=== PATIENT | male | born 1955 | race Caucasian/White ===

== ENCOUNTER 2019-12-06 11:39 | Inpatient (IN) | payer OTHER ==
[~2019-12-06] VITALS: Ht 188 cm; Wt 133.0 kg
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
[2019-12-06 11:40] VITALS: BP 152/95
[2019-12-06 12:08] LABS: BASOPHILS 0.7 % (0.0-2.0); EOSINOPHILS 0.4 % (0.0-3.0); HEMATOCRIT 45.3 % (42.0-52.0); HEMOGLOBIN 15.6 gm/dL (14.0-18.0); LYMPHOCYTES 9.5 % (24.0-44.0); MCH 32.4 pg (26.0-34.0); MCHC 34.4 g/dL (28.0-37.0); MCV 94.3 fL (80.0-100.0); MONOCYTES 6.7 % (1.0-8.0); PLATELET COUNT 226 thou/uL (150-400); POLYS 82.7 % (36.0-66.0); RBC 4.81 mil/uL (4.50-6.00); RDW 13.3 % (10.5-14.5); WBC 10.9 thou/uL (4.0-11.0)
[2019-12-06 12:11] LABS: ANION GAP 9 mmol/L (7-16); BUN 12 mg/dL (7-18); CALCIUM 8.9 mg/dL (8.5-10.1); CHLORIDE 103 mmol/L (98-107); CO2 26 mmol/L (21-32); CREATININE 1.3 mg/dL (0.7-1.3); GLUCOSE 304 mg/dL (74-106); POTASSIUM 4.1 mmol/L (3.5-5.1); SODIUM 138 mmol/L (136-145)
[2019-12-06 12:16] LABS: PROTIME 10.7 Seconds (9.3-11.4)
[2019-12-06 12:21] LABS: ALBUMIN 3.3 g/dL (3.4-5.0); SGOT 20 U/L (15-37); SGPT 24 U/L (30-65); TOTAL BILIRUBIN 1.1 mg/dL (<0.1-1.0); TOTAL PROTEIN 7.5 g/dL (6.4-8.2); TROPONIN-I <0.06 ng/mL (<0.06)
[2019-12-06 13:37] LABS: URINE BILIRUBIN NEGATIVE (Negative); URINE BLOOD TRACE (Negative); URINE CLARITY CLEAR; URINE COLOR YELLOW; URINE GLUCOSE-RANDOM* 2+ (Negative); URINE KETONES 1+ (Negative); URINE LEUKOCYTES-REFLEX NEGATIVE (Negative); URINE NITRITE-REFLEX NEGATIVE (Negative); URINE PROTEIN (DIPSTICK) NEGATIVE (Negative); URINE SPECIFIC GRAVITY 1.025 (1.005-1.035); URINE UROBILINOGEN 0.2 E.U./dl (0.2-1.0)
[2019-12-06 15:23] LABS: TSH 2.229 uIU/mL (0.358-3.740)
--- NOTE | 2019-12-06 15:25 | EKG ---
[facility] [address] [address] ELECTROCARDIOGRAM REPORT Name: MARKO FONTENOT Room #: 170-4 ADM IN M.R.#: [id number] Admission: 12/06/19 Attend Phys: Eduardo Alvarez MD Discharge: Date of : 51 Report #: [id number] THIS REPORT FOR: cc: MILKA - Laquita family physician/PCP MILKA - No family physician/PCP Schuyler Shen MD ~ THIS REPORT FOR: //name// [facility] ED Test Date: 2019-12-06 Test Time: 11:55:23 Pat Name: MARKO FONTENOT Department: Room: [facility] Gender: M Camp Boss: LAINE : 1955 Requested By: Mart Hickey Order Number: [id number] MD: Schuyler Shen Measurements Intervals [place] Rate: 106 P: MI: QRS: 24 QRSD: 106 T: 24 QT: 347 QTc: 461 Interpretive Statements Atrial fibrillation Ventricular premature complex No previous ECG available for comparison Electronically Signed On 12-06-2019 15:25:01 BOOKMAKER MAP by Schuyler Shen [email or web address] <ELECTRONICALLY SIGNED> By: Schuyler Shen MD 12/06/19 1525 1155 1155 Schuyler Shen MD /DEMETRI
[2019-12-06 17:03] VITALS: BP 183/113
[2019-12-06 18:23] VITALS: BP 152/95
[2019-12-06 18:40] VITALS: BP 152/95
[2019-12-06 21:18] VITALS: BP 163/73
[2019-12-07 00:38] VITALS: BP 158/101
[2019-12-07 03:49] VITALS: BP 164/97
[2019-12-07 06:53] LABS: ABSOLUTE NEUTROPHILS 7.9 thou/uL (1.4-8.2); EOSINOPHILS 2.9 % (0.0-3.0); HEMATOCRIT 39.5 % (42.0-52.0); HEMOGLOBIN 13.7 gm/dL (14.0-18.0); LYMPHOCYTES 19.8 % (24.0-44.0); MCH 33.1 pg (26.0-34.0); MCHC 34.7 g/dL (28.0-37.0); MCV 95.3 fL (80.0-100.0); MONOCYTES 7.8 % (1.0-8.0); PLATELET COUNT 225 thou/uL (150-400); POLYS 68.5 % (36.0-66.0); RBC 4.14 mil/uL (4.50-6.00); RDW 13.8 % (10.5-14.5); WBC 11.5 thou/uL (4.0-11.0)
[2019-12-07 07:12] LABS: ANION GAP 12 mmol/L (7-16); BUN 11 mg/dL (7-18); CALCIUM 9.1 mg/dL (8.5-10.1); CHLORIDE 102 mmol/L (98-107); CHOLESTEROL 215 mg/dL (<200); CO2 28 mmol/L (21-32); CREATININE 1.1 mg/dL (0.7-1.3); GLUCOSE 169 mg/dL (74-106); HDL CHOLESTEROL 44 mg/dL (>40); LDL CHOLESTEROL 112 mg/dL (<100); MAGNESIUM 1.9 mg/dL (1.8-2.4); SODIUM 142 mmol/L (136-145); TC:HDL 4.9 Ratio (Not establshd); TRIGLYCERIDE 299 mg/dL (<150); VLDL 60 mg/dL (<40)
[2019-12-07 07:29] LABS: POTASSIUM 3.1 mmol/L (3.5-5.1)
[2019-12-07 07:35] VITALS: BP 158/107
--- NOTE | 2019-12-07 08:46 | NUR ---
ASSUMED CARE AT 1900, ADMISSION AND ASSESSMENT COMPLETED. HEPARIN DRIP WITH BOLUS STARTED; APTT SCHEDULED FOR 0300. NIH SCORE OF 7; SEVERE LEFT SIDE VISION CHANGES AND LEFT SIDE WEAKNESS; GROSS MOTOR MOVEMENT INTACT BUT PT REPORTS LEFT SIDE FEELS NUMB--FREQ HITTING ELBOW AND FOOT ON SIDE OF BED, CAUSING RED SPOTS AND SCRAPES. ALERT AND ORIENTED x4 BUT WITH A SLIGHT DELAY WITH SOME QUESTIONS/FOLLOWING COMMANDS. HAS BEEN IN SR IN THE 70'S OVERNIGHT. HAD SOME STRESS INCONT. LARGE LOOSE STOOL EARLY IN SHIFT. NO OTHER CONCERNS, SHIFT REPORT GIVEN AT 0700.
[2019-12-07 11:33] VITALS: BP 148/88
[2019-12-07 12:32] LABS: CHOLESTEROL 218 mg/dL (<200); HDL CHOLESTEROL 41 mg/dL (>40); LDL CHOLESTEROL 114 mg/dL (<100); TC:HDL 5.3 Ratio (Not establshd); TRIGLYCERIDE 319 mg/dL (<150); VLDL 64 mg/dL (<40)
--- NOTE | 2019-12-07 13:43 | EKG ---
[facility] [place] [address] ELECTROCARDIOGRAM REPORT Name: MARKO FONTENOT Room #: 355- ADM IN M.R.#: [id number] Admission: 12/06/19 Attend Phys: Eduardo Alvarez MD Discharge: Date of : 51 Report #: [id number] THIS REPORT FOR: cc: MILKA - No family physician/PCP MILKA - No family physician/PCP Schuyler Shen MD ~ THIS REPORT FOR: //name// [facility] Test Date: 2019-12-07 Test Time: 08:43:36 Pat Name: MARKO FONTENOT Department: Room: 355 Gender: M Outside Sales Consultant: Hamida IVY : 1955 Requested By: Gopi Hernández Order Number: [id number] MD: Schuyler Shen Measurements Intervals [place] Rate: 119 P: AR: QRS: 25 QRSD: 108 T: 20 QT: 364 QTc: 513 Interpretive Statements Atrial fibrillation Compared to ECG 12/06/2019 11:55:23 Electronically Signed On 12-07-2019 13:42:34 GLASS PRODUCTION MACHINE OPERATOR by Schuyler Shen [email or web address] <ELECTRONICALLY SIGNED> By: Schuyler Shen MD 12/07/19 1342 0843 0843 Schuyler Shen MD /EPI
[2019-12-07 15:17] VITALS: BP 137/80
--- NOTE | 2019-12-07 19:10 | NUR ---
ASSUMED PATIENT CARE AT 0700. A/O X4. HIN X6. LEFT SIDE WEAKNESS. ON HEPRIAN GTT. MAX ASSISTED. SOLWLT TOWARDS POC GOALS.
[2019-12-07 19:13] VITALS: BP 127/80
[2019-12-08] MEDS ORDERED: ASPIR-LOW81 MG PO (00:04)
[2019-12-08] MEDS ORDERED: METFORMIN HCL500 M3 PO (00:05)
[2019-12-08] MEDS ORDERED: COUMADIN 3 MG TA3 MG PO (00:06)
[2019-12-08 04:00] VITALS: BP 134/96
[2019-12-08 07:43] VITALS: BP 148/100
--- NOTE | 2019-12-08 08:34 | NUR ---
PT MAKING POOR PROGRESS TOWARDS GOALS. NIH=7 UPON EACH ASSESSMENT. SEE CHARTING. PT STATED "I KNOW I DID THIS TO MYSELF, BY NOT FINDING A WAY TO GET MY MEDICATIONS." PT REPORTING THAT HE TAKES BABY ASA, METFORMIN (UNSURE OF EXACT DOSE), WARFARIN (UNSURE OF EXACT DOSE), "SOMETHING FOR BLOOD PRESSURE" AND "SOMETHING FOR DEPRESSION." HE FURTHER STATED THAT HE BELIEVES HE HAS NOT TAKEN ANY OF THESE MEDS SINCE LAST JULY EXCEPT FOR THE BABY ASPIRIN WHICH HE HAS TAKEN EVERY DAY. REPORTEDLY HAS BEEN GOING TO A FREE CLINICK LOCATED ON "[address]" AND HAS BEEN ABLE TO GET HIS SCRIPTS FILLED AT "[facility]."
--- NOTE | 2019-12-08 08:52 | EKG ---
[facility] [place] [address] ELECTROCARDIOGRAM REPORT Name: MARKO FONTENOT José Room #: 355- ADM IN M.R.#: [id number] Admission: 12/06/19 Attend Phys: Eduardo Alvarez MD Discharge: Date of : 53 Report #: [id number] THIS REPORT FOR: cc: MILKA - Laquita family physician/PCP MILKA - Laquita family physician/PCP Schuyler Shen MD ~ THIS REPORT FOR: //name// [facility] Test Date: 2019-12-07 Test Time: 14:28:06 Pat Name: MARKO FONTENOT Department: Room: 355 Gender: M Machine Grinder: Hamida IVY : 1955 Requested By: Schuyler Shen Order Number: [id number] MD: Schuyler Shen Measurements Intervals [place] Rate: 83 P: 28 IN: 158 QRS: 24 QRSD: 101 T: 27 QT: 391 QTc: 460 Interpretive Statements Sinus rhythm Probable left atrial enlargement Compared to ECG 12/07/2019 08:43:36 Atrial fibrillation no longer present Electronically Signed On 12-08-2019 8:51:28 RESIN MAKER by Schuyler Shen [email or web address] <ELECTRONICALLY SIGNED> By: Schuyler Shen MD 12/08/19 0851 1428 1428 Schuyler Shen MD /EPI
--- NOTE | 2019-12-08 08:55 | EKG ---
[facility] [place] [address] ELECTROCARDIOGRAM REPORT Name: MARKO FONTENOT José Room #: 355- ADM IN M.R.#: [id number] Admission: 12/06/19 Attend Phys: Eduardo Alvarez MD Discharge: Date of : 53 Report #: [id number] THIS REPORT FOR: cc: MILKA - Laquita family physician/PCP MILKA - Laquita family physician/PCP Schuyler Shen MD ~ THIS REPORT FOR: //name// [facility] Test Date: 2019-12-08 Test Time: 08:05:35 Pat Name: MARKO FONTENOT Department: Room: 355 Gender: M Electrical Mechanic: SEGUNDO : 1955 Requested By: Schuyler Shen Order Number: [id number] MD: Schuyler Shen Measurements Intervals [place] Rate: 71 P: 40 [place]: 152 QRS: 19 QRSD: 113 T: 25 QT: 415 QTc: 451 Interpretive Statements Sinus rhythm Borderline intraventricular conduction delay Compared to ECG 12/07/2019 08:43:36 Atrial fibrillation no longer present Electronically Signed On 12-08-2019 8:54:41 CARRY IN WORKER by Schuyler Shen [email or web address] <ELECTRONICALLY SIGNED> By: Schuyler Shen MD 12/08/1956 4 4 Schuyler Shen MD /EPI
--- NOTE | 2019-12-08 14:07 | HC ---
[facility] [place] [address] CONSULTATION Name: MARKO FONTENOT Room #: 355-[facility] IN M.R.#: [id number] Admission: 12/06/19 Attend Phys: Eduardo Alvarez MD Discharge: Date of : 51 Report #: [id number] THIS REPORT FOR: cc: MILKA Coelho family physician/PCP MILKA - Laquita family physician/PCP Fernanda Rodríguez MD ~ CC: Eduardo Alvarez [facility] physician/PCP Harley Mendez DATE OF SERVICE: 12/07/2019 ENDOCRINE CONSULTATION NOTE CONSULTING PHYSICIAN: Dr. Alvarez. REASON FOR CONSULTATION: Severe hyperglycemia, uncontrolled type 2 diabetes mellitus. HISTORY OF PRESENT ILLNESS: This is a 64-year-old male patient whose medical background is significant for type 2 diabetes mellitus, hypertension, hyperlipidemia, who presented yesterday with complaints of left-sided weakness starting about 48 hours prior to his presentation. The patient reported overall weakness, dizziness, left-sided weakness, gait instability and was admitted on the notion of possible stroke versus TIA. The patient notes that he was diagnosed with type 2 diabetes mellitus in 07/2019 and that he was prescribed a combination of metformin and another oral agent that he cannot recall. The patient has been following at a free clinic and is not covered by health insurance. Unfortunately, he cut his followup short and stopped all medications for diabetes and otherwise a few months ago. He has not monitored his blood glucose at home either. The patient has not particularly had issues with polyuria, polydipsia or significant body weight changes. He is not aware of any documented diabetic complications. REVIEW OF SYSTEMS: CONSTITUTIONAL: Fatigue, tiredness. No fever, no chills, no body weight changes. HEENT: Negative for sinus pain, congestion, ear drainage. PULMONARY: Negative for shortness of breath, cough or hemoptysis. CARDIAC: Negative for chest pain, palpitations, noted for lightheadedness and dizziness. NEUROLOGY: Right-sided weakness, gait instability, left-sided numbness. No seizure activity, no loss of consciousness. GASTROINTESTINAL: Negative for abdominal pain, nausea, vomiting or changes in bowel movement frequency. [facility] [address] [place] [address] CONSULTATION Name: MARKO FONTENOT Jsoé Room #: 355-P [facility] IN ..#: [id number] Admission: 12/06/19 Attend Phys: Eduardo Alvarez MD Discharge: Date of : 53 Report #: [id number] SKIN: Negative for rash, ulceration or other major abnormalities. PSYCHIATRIC: Negative for delusions, hallucinations. NEUROLOGICAL: Negative for dysuria, hematuria, or frequency. Otherwise, review of system is noncontributory other than those mentioned in HPI. PAST MEDICAL HISTORY: Hypertension, hyperlipidemia, type 2 diabetes mellitus, atrial fibrillation, asthma, obesity. OUTPATIENT MEDICATIONS: None. DRUG ALLERGIES: No known drug allergies. FAMILY HISTORY: Noncontributory. SOCIAL HISTORY: The patient is single, lives alone. Denies use of tobacco, alcohol or illicit drugs. PHYSICAL EXAMINATION: GENERAL: male patient who is not in apparent pain or distress. VITAL SIGNS: Blood pressure is 148/88 mmHg, heart rate is 78 beats per minute, respirations 20 per minute, temperature 36.6 degrees. CONSTITUTIONAL: The patient is sitting upright in his bed, appears fairly comfortable, not in apparent distress. HEENT: Anicteric sclerae. Intact extraocular motions. NECK: Supple, without JVD, carotid bruits or lymphadenopathy. I do not appreciate thyromegaly. CHEST: Noted for moderate entry bilaterally with scattered rales and rhonchi, few wheezes. HEART: Regular rate and rhythm without murmurs or gallops. ABDOMEN: Soft and lax. No guarding. Active bowel sounds. EXTREMITIES: Lower extremity exam negative for ankle edema, skin breaks or ulcerations. NEUROLOGIC: Awake, alert and oriented to time, place and person. The exam is noted for 4/5 power over the left upper extremity and lower extremity, altered sensation over the left upper extremity and lower extremity. PSYCH: Interactive, answers my questions appropriately. Normal thought process, but he has a flat mood and affect. LABORATORY RESULTS: During his hospital stay so far blood glucose values have run between 236 and 322 mg/dL. Sodium 142, potassium 3.1, chloride 102, CO2 of 28, anion gap 12, BUN 11, creatinine 1.1. AST 20, total bilirubin 1.1, calcium 9.1, magnesium 1.9, alkaline phosphatase 144, ALT 24, albumin 3.3, EGFR 67. Total cholesterol 218, triglycerides 319, HDL 41, LDL 114. INR 1.0. White blood count 11.5, hemoglobin 13.7, hematocrit 39.5, platelets 225. Hemoglobin A1c is 10%. [address] [address] CONSULTATION Name: MARKO FONTENOT José Room #: 355-P [facility] IN M.R.#: [id number] Admission: 02/14/20 Attend Phys: Eduardo Alvarez MD Discharge: Date of : 51 Report #: [id number] An MRI of the head was performed and noted an acute infarction in the right thalamus, medial aspect of the right temporal lobe and in the anterior most aspects of the right occipital lobe, mild to moderate left frontal and left maxillary sinusitis. Carotid ultrasound noted no significant plaque or stenosis within the internal carotid arteries. Lower extremity arterial ultrasound showed no evidence of occlusion or hemodynamically significant stenosis within the bilateral lower extremity arterial system. ASSESSMENT AND PLAN: 1. Type 2 diabetes mellitus. As noted above, the patient had a recent diagnosis of type 2 diabetes mellitus, and has unfortunately discontinued all active medications due to health insurance being lacking. I had a lengthy discussion with the patient about the importance of achieving and maintaining adequate glycemic control so as to prevent microvascular and macrovascular diabetic complications and explained that the current events might be at least partially contributed to by uncontrolled hyperglycemia. I counseled the patient about the fact that we should be able to reasonably intervene medically with generic medicines that can be attainable without health insurance and he expresses understanding of this notion. The patient continues to have issues with severe hyperglycemia during this hospital stay and given this outlook I will start the patient on Lantus insulin at a dose of 18 units daily as well as keep coverage with Humalog supplemental scale at low intensity. Also, I will add linagliptin 5 mg to his regimen. Blood glucose monitoring will commence a.c. and at bedtime. Upon approaching discharge, the patient will be best covered by generic medicines that can be obtained at a low cost out of pocket including metformin and sulfonylureas. However, I would like to put off the use of metformin for now until I am assure that no further workup or intervention that could be contrast based is needed prior to discharge. 2. Hypertension. The patient's level of blood pressure control is reasonable considering the acute neurological event. He is currently on metoprolol. This is to continue. 3. Hyperlipidemia. The patient's level of lipid control is not satisfactory given the acute CVA and cardiovascular outlook. I will start him on atorvastatin 20 mg daily. 4. Atrial fibrillation. The patient is being followed by Dr. Shen for this issue. 5. Cerebrovascular accident. As noted above, the patient has radiologic evidence of an acute CVA and is under the care of the Neurology team for this issue. [facility] [address] [place] [address] CONSULTATION Name: MARKO FONTENOT Room #: 355-P [facility] IN [facility]#: [id number] Admission: 12/06/19 Attend Phys: Eduardo Alvarez MD Discharge: Date of : 53 Report #: [id number] I certainly appreciate this consultation by Dr. Alvarez. <ELECTRONICALLY SIGNED> By: Fernanda Rodríguez MD 12/08/19 1407 1339 2224 Fernanda Rodríguez MD /nt
[2019-12-08 15:28] VITALS: BP 150/85
[2019-12-08 20:24] VITALS: BP 156/95
[2019-12-08] MEDS ORDERED: BP MED (20:49)
[2019-12-08] MEDS ORDERED: [UNRECOGNIZED DRUG - OTHER] (20:50)
--- NOTE | 2019-12-08 21:04 | NUR ---
DISCUSSED NEED TO STAY ON MEDS ORDERED..
[2019-12-09 04:05] VITALS: BP 151/104
--- NOTE | 2019-12-09 06:24 | NUR ---
Pt. slept fair during the night. No change in neuro status. Cont. on heparin gtt. ,no signs of bleeding. Bed alarm on for safety. Assisted to reposition prn. Will continue to monitor.
--- NOTE | 2019-12-09 06:31 | NUR ---
Pt. had episode of being in afib with [id number] rate for a couple of hours ( [id number] ). Asymptomatic and now back to NSR. Nocturnal desat study done last night.
[2019-12-09 07:36] VITALS: BP 159/104
--- NOTE | 2019-12-09 11:16 | 2DMMODE ---
[facility] [place] [address] 2 D/M-MODE ECHOCARDIOGRAM Name: MARKO FONTENOT José Room #: 355-P ADM IN M.R.#: [id number] Admission: 12/06/19 Attend Phys: Eduardo Alvarez MD Discharge: Date of : 51 Report #: [id number] THIS REPORT FOR: cc: FAM - No family physician/PCP FAM - No family physician/PCP Gopi Hernández MD [facility] ~ APPROVED REPORT Study performed: 12/09/2019 10:16:08 EXAM: Comprehensive 2D, Doppler, and color-flow Echocardiogram Patient Location: Echo lab Room #: [facility] Status: routine BSA: 2.56 HR: 78 bpm BP: 159/104 mmHg Rhythm: NSR Other Information Study Quality: Good Technically limited study due to morbid obesity and COPD. Indications CVA. Hx: Afib, COPD, HTN, HLP. Echo Enhancing Agent Indication: Rule out Shunt Agent(s) / Amount(s) Used: Agitated Saline 7 cc 2D Dimensions RVDd: 42.83 mm IVSd: 14.11 (7-11mm) LVOT Diam: 22.48 (18-24mm) LVDd: 44.72 mm PWd: 14.06 (7-11mm) Ascending Ao: 36.69 (22-36mm) LVDs: 34.41 (25-40mm) Aortic Root: 35.51 mm Volumes Left Atrial Volume (Systole) Single Plane 4CH: 46.79 mL Single Plane 2CH: 34.51 mL LA ESV Index: 17.00 mL/m2 [facility] [address] [place] [address] 2 D/M-MODE ECHOCARDIOGRAM Name: PO,MARKO Kumar Room #: 355-P [facility] IN .R.#: [id number] Admission: 12/06/19 Attend Phys: Michael Casillas Discharge: Date of : 51 Report #: [id number] Aortic Valve AoV Peak Ahsan.: 1.32 m/s AO Peak Gr.: 6.95 mmHg LVOT Max P.83 mmHg LVOT Max V: 0.84 m/s JOSELUIS Vmax: 2.53 cm2 Mitral Valve E/A Ratio: 0.7 MV Decel. Time: 251.75 ms MV E Max Ahsan.: 0.49 m/s MV A Ahsan.: 0.72 m/s MV PHT: 73.01 ms IVRT: 89.97 ms Pulmonary Valve PV Peak Ahsan.: 1.19 m/s PV Peak Gr.: 5.65 mmHg Pulmonary Vein P Vein S: 0.44 m/s P Vein A: 0.27 m/s P Vein D: 0.30 m/s P Vein A Dur.: 121.1 msec P Vein S/D Ratio: 1.47 Tricuspid Valve RAP Estimate: 5.00 mmHg Left Ventricle The left ventricle is normal size. There is normal LV segmental wall motion. Mild concentric left ventricular hypertrophy. The overall left ventricular systolic function appears normal. LVEF is 55-60%. Mild diastolic dysfunction is present (impaired relaxation pattern). Right Ventricle The right ventricle is normal size. The right ventricular systolic function is normal. Atria The left atrium size is normal. No shunting noted by contrast bubble injection. The right atrium size is normal. Aortic Valve The aortic valve is normal in structure; mildly calcified. No aortic regurgitation is present. There is no aortic valvular stenosis. [facility] [address] [employer] [place] [address] 2 D/M-MODE ECHOCARDIOGRAM Name: MARKO FONTENOT Room #: 355-P ADM IN .R.#: [id number] Admission: 12/06/19 Attend Phys: Michael Casillas Discharge: Date of : 51 Report #: [id number] Mitral Valve The mitral valve is normal in structure. There is no mitral valve regurgitation noted. No evidence of mitral valve stenosis. Tricuspid Valve The tricuspid valve is normal in structure. There is no tricuspid valve regurgitation noted. Unable to assess PA pressure. Pulmonic Valve Pulmonic valve is not well visualized. Trace pulmonic regurgitation. Great Vessels The aortic root is normal in size. The ascending aorta is normal in size. IVC is normal in size and collapses >50% with inspiration. Pericardium There is no pericardial effusion. <Conclusion> The left ventricle is normal size. LVEF is 55-60%. Mild diastolic dysfunction is present (impaired relaxation pattern). The right ventricle is normal size. The left atrium size is normal. No shunting noted by contrast bubble injection. The aortic valve is normal in structure; mildly calcified. There is no tricuspid valve regurgitation noted. Unable to assess PA pressure. The aortic root is normal in size. There is no pericardial effusion. <ELECTRONICALLY SIGNED> By: Gopi Hernández MD, FACC 12/09/19 1115 1115 1115 Gopi Hernández MD, FACC /INF
[2019-12-09 16:10] VITALS: BP 130/74
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
--- NOTE | 2019-12-09 19:47 | NUR ---
PLEASANT WITH CARES. HE DENIES PAIN. RESPIRATIONS NON LABORED. WILL CONT WITH PLAN OF CARE.
[2019-12-09 20:04] VITALS: BP 167/93
--- NOTE | 2019-12-10 03:05 | NUR ---
Pt. slept fair during the night. No change in neuro assessment.In and out of SR and a fib with controlled rate. Assisted to reposition prn otherwise able to turn self. No bleeding noted. Making progress towards care plan goals.
[2019-12-10 04:35] VITALS: BP 178/93
[2019-12-10 05:37] LABS: HEMATOCRIT 42.9 % (42.0-52.0); HEMOGLOBIN 14.5 gm/dL (14.0-18.0); MCH 32.6 pg (26.0-34.0); MCHC 33.7 g/dL (28.0-37.0); MCV 96.7 fL (80.0-100.0); RBC 4.44 mil/uL (4.50-6.00); RDW 13.4 % (10.5-14.5); WBC 7.4 thou/uL (4.0-11.0)
[2019-12-10 06:25] LABS: CALCIUM 8.8 mg/dL (8.5-10.1); CREATININE 0.9 mg/dL (0.7-1.3); POTASSIUM 3.7 mmol/L (3.5-5.1)
[2019-12-10 07:59] VITALS: BP 156/88
[2019-12-10 16:15] VITALS: BP 147/89
--- NOTE | 2019-12-10 16:22 | NUR ---
Assumed care approx. 0700 this AM. Pt ALOx4 but forgetful. NIH score has been 5. No new stroke-like symptoms. Pt noted to flip between afib and SR on the monitor. Pt up x2 assist from the chair back to bed with a gait belt and walker. Pts left arm makes uncontrolled movements. Pt very unsteady on feet and requires much guidance when trying to ambulate. Pt steadily making progress toward plan of care goals compared to prior state when admitted.
--- NOTE | 2019-12-10 16:26 | NUR ---
SW reviewed chart and spoke with nursing and attending physician. Pt is progressing towards goals for discharge. SW provided [facility] with pt's photo ID. SW met with pt at bedside to discuss discharge plan. 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 Pt agreeable with referrals to SNFs close to [facility] due to location: -Left voice message for Vandana at [facility]. -Spoke with Oly in admissions at [facility], who states the base rate for skilled would be $500/day plus cost of medications. -Spoke with Serenity in admissions at [facility], who state cost would be $403/day plus therapy and meds. -Spoke with Prema at [facility] who states that cost would be $7800 for 28 days plus therapy and meds. Pt would need to pay up front. -Spoke with Maris at [facility] who states that cost would be $198.50/day plus therapy, which is billed at $1.30/minute. Pt would be able to choose how much therapy he wants and would be able to pay on a weekly basis. Referrals to be faxed to facilities for review. SW is following to assist as needed with discharge planning.
[2019-12-10 19:30] VITALS: BP 169/101
[2019-12-11 00:31] VITALS: BP 153/89
[2019-12-11 04:03] VITALS: BP 160/94
--- NOTE | 2019-12-11 06:41 | NUR ---
Pt. has slept well during the night. Repositioned prn. No change in neuro status. Bed alarm on for safety. Voided per urinal. Making progress towards care plan goals.
[2019-12-11 08:44] VITALS: BP 178/108
[2019-12-11] MEDS ORDERED: TAMBOCOR 100 M100 M1 PO (09:12)
[2019-12-11] MEDS ORDERED: ELIQUIS5 MG PO (09:12)
[2019-12-11] MEDS ORDERED: METOPROLOL SUCC50 MG PO (09:12)
[2019-12-11] MEDS ORDERED: ATORVASTATIN CA10 MG PO (09:12)
[2019-12-11 15:32] VITALS: BP 123/75
--- NOTE | 2019-12-11 17:17 | NUR ---
MILDRED reviewed chart and spoke with nursing and attending physician. Pt is medically stable for discharge to post-acute care. MILDRED met with pt at bedside this morning to discuss discharge plans. SW provided costs for several nursing facilities. Pt requests referral to be sent to [facility], due to location and cost. Pt will be able to pay on a weekly basis. [facility] post acute liaison met with pt at bedside. Pt is agreeable with going to [facility]. [facility] is able to accept once they are able to discuss pt's finances with pt's banker. Unable to reach banker today. SW provided pt with paperwork to complete for diabetes medication assistance programs. Pt to complete forms. MILDRED verified pt's SS# and . MILDRED contacted [employer] to request assistance with seeing if pt has applied for social security in the past. MILDRED updated pt's nurse and attending physician. MILDRED is following to assist as needed with discharge planning.
[2019-12-11 19:53] VITALS: BP 152/100
--- NOTE | 2019-12-11 20:08 | NUR ---
Assumed care approx. 0700 this AM. No new stroke-like symptoms. No complaints of pain, shortness of breath, dizziness, or headache. No acute changes. Pt to discharge tomorrow to rehab facility per case management update. Pt progressing toward plan of care goals.
--- NOTE | 2019-12-12 02:57 | NUR ---
Patient progressing towards outcome goals. Calls out appropriately for needs. 2 person assist with gait belt and walker up to chair. Vital signs and rhythm stable. High fall risks, fall precautions in place.
[2019-12-12 03:54] VITALS: BP 126/84
[2019-12-12 07:48] VITALS: BP 154/92
[2019-12-12] MEDS ORDERED: TRADJENTA5 MG PO (14:27)
[2019-12-12] MEDS ORDERED: LANTUS100 UNIT/M SUBQ (14:28)
[2019-12-12 15:13] VITALS: BP 131/68
--- NOTE | 2019-12-12 16:07 | NUR ---
Assumed care approx. 0700 this AM. NIH score 4. Pt had no new complaints or concerns this morning. Discharge orders obtained this afternoon. Pt asked if any family is to be notified; pt stated he can't remember his brothers phone number. IV and tele dc'd. Report called to [facility] rehab. All belongings noted to be with patient. Patient left unit approx. 1600 from unit.
--- NOTE | 2019-12-12 16:39 | NUR ---
DISCHARGE NOTE: SW reviewed chart and spoke with nursing and attending physician. Pt is medically stable for discharge to [facility] today. MILDRED met with pt at bedside to discuss discharge plan. SW assisted pt with signing prescription assistance forms for DM medications. These forms provided to [facility] for completion. Pt's banker, Belkis Llanes, is at [facility]. [facility] post acute liaison was able to contact [employer] and obtain the required documentation needed to ensure payment. [facility] able to accept pt today. cyber intel planner faxed finalized discharge orders/summary to [facility]. Wheelchair van transportation scheduled for [phone] per facility's arrangements. MILDRED updated pt at bedside. Pt agreeable with discharge plan. Pt requested SW contact his brother, Sergey. Pt unable to recall Sergey' phone number. SW placed call to [phone], which is listed in pt's chart. This number is no longer in service. Chart copy requested. Nursing provided with number to call report. No additional SW needs identified at this time, but is available to assist should needs arise.
== END 2019-12-12 16:18 | DRG 66 ==
LOC: ER 11:39 → 3W 13:41 → EROBS 13:41 → 3W 18:11
PROVIDERS: Emergency Medicine; Hospitalist; Nurse Practitioner; ADMIT Hospitalist
DX: I63.9 Cerebral infarction, unspecified (principal); E11.65 Type 2 diabetes mellitus with hyperglycemia; J45.909 Unspecified asthma, uncomplicated; E78.5 Hyperlipidemia, unspecified; I10 Essential (primary) hypertension; I16.0 Hypertensive urgency; I48.91 Unspecified atrial fibrillation; Z77.22 Contact with and (suspected) exposure to environmental tobacco smoke (acute) (chronic); J44.9 Chronic obstructive pulmonary disease, unspecified; E66.9 Obesity, unspecified; E11.51 Type 2 diabetes mellitus with diabetic peripheral angiopathy without gangrene; I66.21 Occlusion and stenosis of right posterior cerebral artery; G93.89 Other specified disorders of brain; E87.6 Hypokalemia; Z79.82 Long term (current) use of aspirin; Z68.37 Body mass index [BMI] 37.0-37.9, adult; Z91.14 Patient's other noncompliance with medication regimen; Z79.899 Other long term (current) drug therapy
CPT/HCPCS: 10879

== ENCOUNTER 2020-03-10 01:21 | Emergency (ER) | payer OTHER ==
[~2020-03-10] VITALS: Ht 188 cm; Wt 113.4 kg
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
[~2020-03-10 01:21] MED LIST: ASPIR-LOW81 MG PO; ATORVASTATIN CA10 MG PO; BP MED; COUMADIN 3 MG TA3 MG PO; ELIQUIS5 MG PO; LANTUS100 UNIT/M SUBQ; METFORMIN HCL500 M3 PO; METOPROLOL SUCC50 MG PO; TAMBOCOR 100 M100 M1 PO; TRADJENTA5 MG PO; [UNRECOGNIZED DRUG - OTHER]
[2020-03-10 03:09] VITALS: BP 142/69
[2020-03-10] MEDS ORDERED: VENTOLIN HFA 1818 GM INH (03:27)
== END 2020-03-10 03:49 | disposition home or self-care (01) ==
LOC: ER 01:21
DX: Z77.098 Contact with and (suspected) exposure to other hazardous, chiefly nonmedicinal, chemicals (principal); J45.909 Unspecified asthma, uncomplicated; E11.9 Type 2 diabetes mellitus without complications; I48.91 Unspecified atrial fibrillation; I10 Essential (primary) hypertension; E78.5 Hyperlipidemia, unspecified; Z90.49 Acquired absence of other specified parts of digestive tract; Z86.73 Personal history of transient ischemic attack (TIA), and cerebral infarction without residual deficits; Z79.4 Long term (current) use of insulin